=== PATIENT | female | born 2000 | race Caucasian/White ===

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

== ENCOUNTER 2024-10-28 12:14 | Outpatient (REF) | payer MEDICAID, SELFPAY ==
--- OUTSIDE RECORDS SUMMARY | 2024-10-28 12:56 | XMS_ITS | Clinical Summary ---
Author Organization [facility] [employer] [facility] ity Address [address] [place] [address] Care Team Providers Care Clinical Safety Specialist Name Role Phone Unavailable Primary Care Provider Unavailabl e Social History Tobacco Use Types Packs/Day Years Used Date Smoking Tobacco: Never Assessed Comments Unknown Sex and Gender Information Value Date Recorded Sex Assigned at Not on file Legal Sex Female 2:54 AM EST Gender Identity Not on file Sexual Orientation Not on file Plan of Treatment Health Maintenance Due Date Last Done Comments Gonorrhea/Chlamydia Screening 2002 HPV Vaccines (1 - 3-dose series) 2017 Meningococcal B Vaccine (1 o f 2 - Standard) 2018 DTaP,Tdap,and Td Vaccines (1 - Tdap) 2021 Hepatitis B Vaccines (1 of 3 - 19+ 3-dose series) 2021 Cervical Cancer Screening: P ap Smear 2023 COVID-19 Vaccine (1 - 2023-2 5 season) 2023 Depression Screening 03/25/2024 Influenza Vaccine (#1) 2024 HIB Vaccines Aged Out No longer eligi ble based on patient's age to complete this topic Hepatitis A Vaccines Aged Out No long er eligible based on patient's age to complete this topic IPV Vaccines Aged Out No longer eligi ble based on patient's age to complete this topic MMR Vaccines Aged Out No longer eligi ble based on patient's age to complete this topic Meningococcal ACWY Vaccine Aged Out N o longer eligible based on patient's age to complete this topic Pneumococcal Vaccine: Pediat rics (0 to 5 Years) and At-Risk Patients (6 to 49 Years) Aged Out No longer eligible b ased on patient's age to complete this topic RSV Immunization Patients Un maria dolores 20 months Aged Out No longer eligible b ased on patient's age to complete this topic Varicella Vaccines Aged Out No longer eligible based on patient's age to complete this topic
--- OUTSIDE RECORDS SUMMARY | 2024-10-28 12:56 | XMS_ITS | Encounter Summary ---
Author Organization [facility] Address [address] [place] [address] [address] [place] [address] Care Team Providers Care Display Decorator Name Role Phone Beena Tiwari MD Primary Care Provider [phone] Reason for Visit * Reason Onset Date Comments Med Refill 10/17/2023 Encounter Details Date Type Department Care Team ([facility] st Contact Info) Description 10/17/2023 Refill [facility] [address] [place] [address] [phone] Beena Tiwari MD [address] [place] [phone] Encounter for management and injection of injectable progestin contraceptive Social History Tobacco Use Types Packs/Day Years Used Date Smoking Tobacco: Never Smokeless Tobacco: Never Comments Unknown Sex and Gender Information Value Date Recorded Sex Assigned at Female 2022 10:17 AM EDT Legal Sex Female 10:17 AM EDT Gender Identity Female 2022 10:17 AM EDT Sexual Orientation Straight 2022 10 :17 AM EDT documented as of this encounter Plan of Treatment Upcoming Encounters Date Type Department Care Team (Late st Contact Info) Description 12/14/2024 3:00 PM EDT Clinical Support [facility] [address] [place] [address] [phone] documented as of this encounter Visit Diagnoses Diagnosis Encounter for management and injection of injectable progestin contraceptive documented in this encounter Care Teams Display Decorator Relationship Specialty Start Date End Date Beena Tiwari MD [address] [place] [address] [phone] PCP - General Family Medicine 05/24/21 documented as of this encounter
[2024-10-28 14:28] LABS: Folate 9.5 ng/mL (> or = 4.0); Vitamin B12 501 pg/mL (200-900)
== END 2024-10-28 12:15 | disposition home or self-care (01) ==
LOC: HO.HHCL 12:14
PROVIDERS: Visit Provider General Practice
DX: L65.9 Nonscarring hair loss, unspecified (principal); Z11.3 Encounter for screening for infections with a predominantly sexual mode of transmission
CPT/HCPCS: 36415; 82607; 82746; 84443; 86592